=== PATIENT | male | born 1960 | race Hispanic/Latino ===

== ENCOUNTER 2017-10-08 02:53 | Emergency (ER) | payer OTHER ==
[2017-10-08 02:53] VITALS: BMI 28.8
[2017-10-08] MEDS ORDERED: Sodium Chloride 0.9% 1,000 ML IV STA (03:41)
[2017-10-08] MEDS ORDERED: Albuterol-Ipratrop 3 mg / 0.5 (3 ml) UD IH STA (03:43)
--- NOTE | 2017-10-08 03:43 | ED PDOC ---
HPI: Abdomen Time Seen by Provider: 10/08/17 03:13 Chief Complaint (Nursing): Abdominal Pain Chief Complaint (Provider): abdominal pain History Per: Patient History/Exam Limitations: no limitations Onset/Duration Of Symptoms: Days (1) Current Symptoms Are (Timing): Still Present Location Of Pain/Discomfort: RUQ Additional Complaint(s): 57 y/o male presents for evaluation of right upper abdominal pain x 1 day. Patient with history of gallstones, states this feels like his similar "gallbladder attack". Patient is scheduled to have surgery with Dr. Fox in October, requesting Toradol today. Denies fever, nausea/vomiting, chest pain, shortness of breath, palpitations, changes in bowel movements, urinary symptoms. Past Medical History Reviewed: Historical Data, Nursing Documentation, Vital Signs Vital Signs: Last Vital Signs Temp 98.6 F 10/08/17 03:00 Pulse 67 10/08/17 03:00 Resp 16 10/08/17 03:00 BP 152/93 H 10/08/17 03:00 Pulse Ox 99 10/08/17 03:44 - Medical History PMH: Asthma, COPD, Emphysema, Gall Bladder Disease Denies: Chronic Kidney Disease - Surgical History Surgical History: Appendectomy - Family History Family History: States: Unknown Family Hx - Immunization History Hx Tetanus Toxoid Vaccination: No Hx Influenza Vaccination: No Hx Pneumococcal Vaccination: No - Home Medications Home Medications: Ambulatory Orders Medication Instructions Recorded Albuterol/Ipratropium [Duoneb 3 3 ml IH Q6H PRN 07/19/16 MG/3 Ml-0.5 MG/3 Ml 3 Ml] Dulera 100 Mcg/5 Mcg Inhaler 1 dose INH BID 03/06/17 Spiriva 1 dose INH BID 03/06/17 Albuterol HFA [Ventolin HFA 90 1 puff IH PRN PRN 09/07/17 mcg/actuation (8 g)] Montelukast [Singulair] 10 mg PO HS 09/07/17 Prednisone [Deltasone] 1 tab PO DAILY 09/07/17 Ketorolac Tromethamine [Toradol] 10 mg PO Q6 PRN #20 tab 10/08/17 - Allergies Allergies/Adverse Reactions: Allergies Allergy/AdvReac Type Severity Reaction Status Date / Time No Known Allergies Allergy Verified 09/07/17 09:23 Review of Systems ROS Statement: Except As Marked, All Systems Reviewed And Found Negative Gastrointestinal: Positive for: Abdominal Pain Physical Exam - Reviewed Nursing Documentation Reviewed: Yes Vital Signs Reviewed: Yes - Physical Exam Appears: Positive for: Well, Non-toxic, Uncomfortable (anxious) Head Exam: Positive for: ATRAUMATIC, NORMAL INSPECTION, NORMOCEPHALIC Skin: Positive for: Normal Color Eye Exam: Positive for: Normal appearance ENT: Positive for: Normal ENT Inspection Cardiovascular/Chest: Positive for: Regular Rate, Rhythm Respiratory: Positive for: Normal Breath Sounds Gastrointestinal/Abdominal: Positive for: Soft, Tenderness (RUQ, neg Sheth's). Negative for: Guarding, Rebound Back: Positive for: Normal Inspection Extremity: Positive for: Normal ROM Neurologic/Psych: Positive for: Alert, Oriented - Laboratory Results Result Diagrams: 10/08/17 04:07 10/08/17 04:07 - ECG O2 Sat by Pulse Oximetry: 99 - Progress ED Course And Treament: labs, IV toradol, IV fluids, duoneb On re-eval, patient sleeping; upon awaking states pain improved. Tolerating PO WBC normal. Afebrile. LFTs/lipase normal Patient stable for discharge Advised follow up with Surgeon as scheduled Rx Toradol provided Return precautions given Disposition - Clinical Impression Clinical Impression: Biliary colic - Patient ED Disposition Is Patient to be Admitted: No Counseled Patient/Family Regarding: Studies Performed, Diagnosis, Need For Followup, Rx Given - Disposition Disposition: Routine/Home Disposition Time: 05:10 Condition: IMPROVED Prescriptions: Ketorolac Tromethamine [Toradol] 10 mg PO Q6 PRN #20 tab PRN Reason: Pain, Moderate (4-7) Instructions: Gallstones
[2017-10-08] MEDS ORDERED: Albuterol-Ipratrop 3 mg / 0.5 (3 ml) UD ONE (04:08)
[2017-10-08 04:10] LABS: BASO % 0.3 % (0.0-2.0); EOS % 0.2 % (0.0-4.0); HEMOGLOBIN 13.5 g/dL (12.0-18.0); LYMPH # 0.7 K/uL (1.0-4.3); LYMPH % 6.7 % (20.0-40.0); MEAN CELL VOLUME 87.3 fl (80.0-94.0); MEAN CORPUSCULAR HEMOGLOBIN 29.6 pg (27.0-31.0); MEAN CORPUSCULAR HGB CONC 33.9 g/dL (33.0-37.0); MEAN PLATELET VOLUME 9.3 fl (7.2-11.7); MONO # 0.3 K/uL (0.0-0.8); MONO % 3.4 % (0.0-10.0); NEUT # 8.8 K/uL (1.8-7.0); NEUT % 89.4 % (50.0-75.0); PLATELET COUNT 201 K/uL (130-400); RBC 4.57 Mil/uL (4.40-5.90); RED CELL DISTRIBUTION WIDTH 14.6 % (11.5-14.5); WHITE BLOOD COUNT 9.8 K/uL (4.8-10.8)
[2017-10-08 04:21] LABS: ALB/GLOB RATIO 1.5 (1.0-2.1); ALBUMIN 3.9 g/dL (3.5-5.0); ALT/SGPT 25 U/L (21-72); AST/SGOT 22 U/L (17-59); BLOOD UREA NITROGEN 17 mg/dl (9-20); CALCIUM 8.3 mg/dL (8.4-10.2); GFR AFRICAN-AMERICAN > 60; GFR NON-AFRICAN AMERICAN > 60; LIPASE 58 U/L (23-300)
[2017-10-08 06:16] VITALS: BP 151/63; PULSE 75; RESP 18; TEMP 98; O2SAT 95
[2017-10-08 07:30] LABS: ACANTHOCYTES SLIGHT; ANISOCYTOSIS SLIGHT; BANDS 2 % (0-2); BASOPHIL 1 % (0-2); HYPOCHROMIC SLIGHT; LYMPHOCYTE 7 % (20-50); MONOCYTE 1 % (0-10); NEUTROPHIL 88 % (42-75); PLATELET ESTIMATE NORMAL (NORMAL); REACTIVE LYMPHOCYTES 1 % (0-0); TOTAL CELLS COUNTED 100
[2017-10-08 07:33] LABS: LARGE PLATELETS PRESENT
== END 2017-10-08 06:44 | disposition home or self-care (01) ==
LOC: H.ER 02:53
DX: K80.20 Calculus of gallbladder without cholecystitis without obstruction (principal); J44.9 Chronic obstructive pulmonary disease, unspecified
CPT/HCPCS: 80053; 83690; 85025; 94640; 96374; 99283; J1885; J7030

== ENCOUNTER 2017-11-17 12:18 | Emergency (ER) | payer MEDICAID, OTHER ==
[2017-11-17 12:18] VITALS: BMI 28.8
[2017-11-17 12:30] VITALS: TEMP 97
--- NOTE | 2017-11-17 13:10 | ED PDOC ---
HPI: Chest Pain Time Seen by Provider: 11/17/17 12:32 Chief Complaint (Nursing): Chest Pain History Per: Patient (Jake is a 57 yo man with h/o COPD who presents for evaluation of left lower chest pain that started abrupted after tripping over a tree stump at 2 am and landing onto the concrete onto his left side. His friend helped him up and took him to his house to rest. This morning he noticed that the pain is worse. He also noted that he has had more phlegm with his chronic cough.) Past Medical History Reviewed: Historical Data, Nursing Documentation, Vital Signs Vital Signs: Last Vital Signs Temp 97.0 F L 11/17/17 12:27 Pulse 86 11/17/17 12:27 Resp 18 11/17/17 12:27 BP 142/86 11/17/17 12:27 Pulse Ox 99 11/17/17 13:14 - Medical History PMH: Asthma, COPD, Emphysema, Gall Bladder Disease Denies: Chronic Kidney Disease - Surgical History Surgical History: Appendectomy - Family History Family History: States: Unknown Family Hx - Social History Current smoker - smoking cessation education provided: Yes Alcohol: Social - Immunization History Hx Tetanus Toxoid Vaccination: No Hx Influenza Vaccination: No Hx Pneumococcal Vaccination: No - Home Medications Home Medications: Ambulatory Orders Medication Instructions Recorded Albuterol/Ipratropium [Duoneb 3 3 ml IH Q6H PRN 07/19/16 MG/3 Ml-0.5 MG/3 Ml 3 Ml] Dulera 100 Mcg/5 Mcg Inhaler 1 dose INH BID 03/06/17 Spiriva 1 dose INH BID 03/06/17 Albuterol HFA [Ventolin HFA 90 1 puff IH PRN PRN 09/07/17 mcg/actuation (8 g)] Montelukast [Singulair] 10 mg PO HS 09/07/17 Prednisone [Deltasone] 1 tab PO DAILY 09/07/17 Ketorolac Tromethamine [Toradol] 10 mg PO Q6 PRN #20 tab 10/08/17 - Allergies Allergies/Adverse Reactions: Allergies Allergy/AdvReac Type Severity Reaction Status Date / Time No Known Allergies Allergy Verified 09/07/17 09:23 Review of Systems ROS Statement: Except As Marked, All Systems Reviewed And Found Negative Constitutional: Negative for: Fever, Chills Cardiovascular: Positive for: Chest Pain (lateral and lower on the left side) Respiratory: Positive for: Cough. Negative for: Shortness of Breath, Hemoptysis , SOB with Exertion Gastrointestinal: Negative for: Nausea, Vomiting Physical Exam - Reviewed Nursing Documentation Reviewed: Yes Vital Signs Reviewed: Yes - Physical Exam Appears: Positive for: Well, Non-toxic, No Acute Distress Head Exam: Positive for: ATRAUMATIC, NORMAL INSPECTION, NORMOCEPHALIC Skin: Positive for: Normal Color, Warm, DRY Eye Exam: Positive for: Normal appearance, EOMI ENT: Positive for: Normal ENT Inspection Neck: Positive for: Normal, Supple Cardiovascular/Chest: Positive for: Regular Rate, Rhythm, Other (tenderness on palpation of the left mid to lower chest on the right) Respiratory: Positive for: CNT, Normal Breath Sounds Gastrointestinal/Abdominal: Positive for: Normal Exam, Soft Back: Positive for: Normal Inspection Extremity: Positive for: Normal ROM Neurologic/Psych: Positive for: Alert, Oriented - ECG O2 Sat by Pulse Oximetry: 99 - Radiology X-Ray: Viewed By Me, Read By Radiologist X-Ray Interpretation: No Acute Disease Disposition - Clinical Impression Clinical Impression: Chest wall pain - Patient ED Disposition Is Patient to be Admitted: No Doctor Will See Patient In The: Office Counseled Patient/Family Regarding: Diagnosis, Need For Followup - Disposition Disposition: Routine/Home Disposition Time: 13:45 Condition: STABLE Instructions: Bruised Rib (DC) Forms: [facility] (Upper Sorbian) - POA Present On Arrival: Falls Or Trauma
--- NOTE | 2017-11-17 13:26 | RAD ---
Date of service: 11/17/2017 PROCEDURE: Radiographs of the Chest and Left Ribs. HISTORY: trauma with bruising COMPARISON: None available. TECHNIQUE: Frontal radiograph of the chest and multiple oblique radiographs of the left ribs were obtained. FINDINGS: LEFT RIBS: No fracture or focal lesion visualized. LUNGS: Clear. PLEURA: No pneumothorax or pleural fluid. CARDIOVASCULAR: Normal sized heart. No pulmonary vascular congestion. OTHER FINDINGS: None. IMPRESSION: Unremarkable radiographs of the chest and left ribs. No left rib fracture.
--- NOTE | 2017-11-17 13:27 | RAD ---
Date of service: 11/17/2017 HISTORY: cough COMPARISON: No prior. TECHNIQUE: Chest PA and lateral FINDINGS: LUNGS: No active pulmonary disease. PLEURA: No significant pleural effusion identified. No pneumothorax apparent. CARDIOVASCULAR: Normal. OSSEOUS STRUCTURES: Thoracic spondylosis Accessory ossifications center (versus tiny loose body bordering the superior glenoid rim. VISUALIZED UPPER ABDOMEN: Normal. OTHER FINDINGS: None. IMPRESSION: No acute cardiopulmonary pathology. Specifically no pulmonary infiltrate. Other findings as above.
[2017-11-17 15:27] VITALS: BP 138/81; PULSE 81; RESP 15; O2SAT 97
== END 2017-11-17 15:27 | disposition home or self-care (01) ==
LOC: H.ER 12:18
DX: R07.89 Other chest pain (principal)
CPT/HCPCS: 71046; 71101; 96372; 99283; J1885

== ENCOUNTER 2018-03-07 18:54 | Inpatient (IN) | payer OTHER ==
[2018-03-07 18:54] VITALS: BMI 28.8
[2018-03-07] MEDS ORDERED: Sodium Chloride 0.9% 1,000 ML IV STA ×3 (19:29→23:35)
[2018-03-07] MEDS ORDERED: Albuterol-Ipratrop 3 mg / 0.5 (3 ml) UD INH STA (19:34)
[2018-03-07 19:51] LABS: BASO # 0.1 K/uL (0.0-0.2); BASO % 0.7 % (0.0-2.0); EOS # 0.2 K/uL (0.0-0.7); EOS % 1.8 % (0.0-4.0); HEMOGLOBIN 14.3 g/dL (12.0-18.0); LYMPH # 2.5 K/uL (1.0-4.3); LYMPH % 21.2 % (20.0-40.0); MEAN CELL VOLUME 88.6 fl (80.0-94.0); MEAN CORPUSCULAR HEMOGLOBIN 28.8 pg (27.0-31.0); MEAN CORPUSCULAR HGB CONC 32.5 g/dL (33.0-37.0); MEAN PLATELET VOLUME 9.3 fl (7.2-11.7); MONO # 0.9 K/uL (0.0-0.8); MONO % 7.8 % (0.0-10.0); NEUT % 68.5 % (50.0-75.0); NRBC % 0.1 % (0.0-0.0); RBC 4.99 Mil/uL (4.40-5.90); RED CELL DISTRIBUTION WIDTH 14.7 % (11.5-14.5); WHITE BLOOD COUNT 11.6 K/uL (4.8-10.8)
[2018-03-07 20:06] LABS: ALB/GLOB RATIO 1.4 (1.0-2.1); ALBUMIN 4.2 g/dL (3.5-5.0); ALT/SGPT 78 U/L (21-72); AST/SGOT 40 U/L (17-59); BLOOD UREA NITROGEN 18 mg/dl (9-20); CALCIUM 8.8 mg/dL (8.4-10.2); GFR NON-AFRICAN AMERICAN > 60; LIPASE 48 U/L (23-300)
--- NOTE | 2018-03-07 20:16 | ED PDOC ---
HPI: Abdomen Time Seen by Provider: 03/07/18 19:13 Chief Complaint (Nursing): Abdominal Pain Chief Complaint (Provider): Abdominal pain History Per: Patient History/Exam Limitations: no limitations Onset/Duration Of Symptoms: Hrs Current Symptoms Are (Timing): Still Present Location Of Pain/Discomfort: RUQ Quality Of Discomfort: "Pain" Additional History Per: Patient Additional Complaint(s): 58yo male, with history of gallstones, comes to ER with sudden onset RUQ abdominal pain, onset approximately 2 hours prior to arrival. Patient states he has a known history of cholelithiasis and had a scheduled surgery with Dr. Fox, but due to personal reasons had to cancel the surgery; he states he had scheduled the surgery for an outpatient procedure but today he had sudden onset pain, which is the worst he has experienced. HE also reports associated vomiting and states he has relief only when he is "hunched over." Patient states the vomiting was non-bilious, non-bloody and the abdominal pain is worse with deep inspiration. Patient denies any fever, chills and offers no other complain ts. PMD: Dr. Quinonez Past Medical History Reviewed: Historical Data, Nursing Documentation, Vital Signs Vital Signs: Last Vital Signs Temp 98.4 F 03/07/18 18:58 Pulse 88 03/07/18 18:58 Resp 16 03/07/18 18:58 BP 160/105 H 03/07/18 18:58 Pulse Ox 100 03/07/18 18:58 - Medical History PMH: Asthma, COPD, Emphysema, Gall Bladder Disease Denies: Chronic Kidney Disease - Surgical History Surgical History: Appendectomy - Family History Family History: States: No Known Family Hx - Immunization History Hx Tetanus Toxoid Vaccination: No Hx Influenza Vaccination: No Hx Pneumococcal Vaccination: No - Home Medications Home Medications: Ambulatory Orders Medication Instructions Recorded Albuterol/Ipratropium [Duoneb 3 3 ml IH Q6H PRN 07/19/16 MG/3 Ml-0.5 MG/3 Ml 3 Ml] Dulera 100 Mcg/5 Mcg Inhaler 1 dose INH BID 03/06/17 Spiriva 1 dose INH BID 03/06/17 Albuterol HFA [Ventolin HFA 90 1 puff IH PRN PRN 09/07/17 mcg/actuation (8 g)] Montelukast [Singulair] 10 mg PO HS 09/07/17 Prednisone [Deltasone] 1 tab PO DAILY 09/07/17 Ketorolac Tromethamine [Toradol] 10 mg PO Q6 PRN #20 tab 10/08/17 - Allergies Allergies/Adverse Reactions: Allergies Allergy/AdvReac Type Severity Reaction Status Date / Time No Known Allergies Allergy Verified 09/07/17 09:23 Review of Systems ROS Statement: Except As Marked, All Systems Reviewed And Found Negative Constitutional: Negative for: Fever, Chills Cardiovascular: Negative for: Chest Pain Respiratory: Negative for: Shortness of Breath Gastrointestinal: Positive for: Vomiting, Abdominal Pain Physical Exam - Reviewed Nursing Documentation Reviewed: Yes Vital Signs Reviewed: Yes - Physical Exam Appears: Positive for: Non-toxic, Uncomfortable Head Exam: Positive for: ATRAUMATIC, NORMAL INSPECTION, NORMOCEPHALIC Skin: Positive for: Normal Color Eye Exam: Positive for: Normal appearance Cardiovascular/Chest: Positive for: Regular Rate, Rhythm Respiratory: Positive for: Normal Breath Sounds Gastrointestinal/Abdominal: Positive for: Soft, Tenderness (right upper quadrant tenderness; (+) Lillian sign). Negative for: Mass, Distended, Guarding, Rebound Back: Positive for: Normal Inspection Extremity: Positive for: Normal ROM. Negative for: Pedal Edema Neurologic/Psych: Positive for: Alert, Oriented. Negative for: Motor/Sensory Deficits Comments: Exam somewhat limited due to patient being unable to lay on stretcher - Laboratory Results Result Diagrams: 03/07/18 19:30 03/07/18 19:30 - ECG O2 Sat by Pulse Oximetry: 100 (RA) Pulse Ox Interpretation: Normal Medical Decision Making Medical Decision Making: Assessment: 58yo male with history of gallstones, comes to ER with acute onset right upper quadrant pain cholecystits vs. other gallbladder pathology Plan: -- Labs -- US Abdomen -- Toradol 30mg IV -- IV Fluids 2210 Labs reviewed and patient noted to have elevated ALT and slightly elevated WBC. Patient's pain initially controlled with Toradol but has now returned; patient given Morphine 2mg. Patient given additional IV fluids. Currently awaiting US results. 2241 US Abdomen Findings: The pancreas is limited in visualization secondary to overlying bowel gas, but appears grossly unremarkable. The liver demonstrates uniform echotexture and echogenicity, with no mass lesions. The gallbladder wall is thickened measuring up to 5.5 mm. Multiple echogenic shadowing foci are noted within the gallbladder. The common bile duct is dilated, measuring up to 7 mm in diameter. The right kidney measures 10.3 cm in length. There is no evidence of hydronephrosis or nephrolithiasis. There is no ascites. Impression: 1. Cholelithiasis with gallbladder wall thickening in mild biliary ductal dilatation. Positive sonographic Sheth's sign was elicited as well. This conglomeration of findings is suspicious for acute cholecystitis. [id number] Patient consulted with surgery service. Surgery requesting admission for ch olelithiasis with possibility of acute cholecystitis. Patient also has been treated for COPD exacerbation with Duonebs. IV fluids given. Will start Ceftriaxone per surgery's request. Spoke with Dr. Dumont to inform of admission and he agrees with plan. Patient's pain has improved with Toradol and Morphine. Scribe Attestation: Documented by Noemi Carroll, acting as a scribe for Eunice Pinto MD. Provider Scribe Attestation: All medical record entries made by the Scribe were at my direction and personally dictated by me. I have reviewed the chart and agree that the record accurately reflects my personal performance of the history, physical exam, medical decision making, and the department course for this patient. I have also personally directed, reviewed, and agree with the discharge instructions and disposition. Disposition - Clinical Impression Clinical Impression: Cholecystitis - Disposition Disposition Time: 23:40 Condition: GUARDED
[2018-03-07 20:41] LABS: VENOUS BLOOD GAS BASE EXCESS 2.5 mmol/L (0.0-2.0); VENOUS BLOOD GAS PCO2 45 mmHg (40-60); VENOUS BLOOD GAS PO2 53 mm/Hg (30-55)
[2018-03-07 20:48] LABS: INR 0.9; PROTHROMBIN TIME 10.7 Seconds (9.8-13.1)
[2018-03-07 20:51] LABS: PARTIAL THROMBOPLASTIN TIME 27.4 Seconds (25.6-37.1)
[2018-03-07] MEDS ORDERED: Morphine 4 MG/ML VIAL ONE (22:05)
--- NOTE | 2018-03-07 23:38 | CP.PCM.CON ---
History of Present Illness - History of Present Illness History of Present Illness: general Surgery Consult for Dr. Childress Consulted for Cholecystitis Patient is a 58 yr old male with PMH COPD, cholithiasis who presents with new onset sharp RUQ abdominal pain beginning at 3 pm today associated with n/v x1. Patient states the pain began after he ate a tuna sandwich. He has been scheduled in the past to have his gallbladder removed but had to cancel due to various circumstances. He otherwise denies f/c, DAVE, SOB, CP and extremity pain or weakness. PMH: COPD, cholelithiasis PSH: appendectomy All: nkda Social: smoker 1/2 ppd, denies ETOH, cocaine abuse last use 4 days ago Review of Systems - Review of Systems All systems: reviewed and no additional remarkable complaints except (as per HPI) Past Patient History - Infectious Disease Hx of Infectious Diseases: None - Past Medical History & Family History Past Medical History?: Yes - Past Social History Smoking Status: Light Smoker < 10 Cigarettes Daily - CARDIAC Hx Cardiac Disorders: No - PULMONARY Hx Asthma: Yes Hx Chronic Obstructive Pulmonary Disease (COPD): Yes Hx Emphysema: Yes - NEUROLOGICAL Hx Neurological Disorder: No - HEENT Hx HEENT Problems: No - RENAL Hx Chronic Kidney Disease: No - ENDOCRINE/METABOLIC Hx Endocrine Disorders: No - HEMATOLOGICAL/ONCOLOGICAL Hx Blood Disorders: No - INTEGUMENTARY Hx Dermatological Problems: No - MUSCULOSKELETAL/RHEUMATOLOGICAL Hx Musculoskeletal Disorders: No Hx Degenerative Joint Disease: No Hx Falls: No Hx Gout: No Hx Unsteady Gait: No - GASTROINTESTINAL Hx Gall Bladder Disease: Yes - GENITOURINARY/GYNECOLOGICAL Hx Genitourinary Disorders: No - PSYCHIATRIC Hx Psychophysiologic Disorder: No Hx Substance Use: No - SURGICAL HISTORY Hx Appendectomy: Yes - ANESTHESIA Hx Anesthesia: Yes Hx Anesthesia Reactions: No Hx Malignant Hyperthermia: No Meds Allergies/Adverse Reactions: Allergies Allergy/AdvReac Type Severity Reaction Status Date / Time No Known Allergies Allergy Verified 09/07/17 09:23 Physical Exam - Constitutional Appears: Well, Non-toxic, No Acute Distress - Head Exam Head Exam: ATRAUMATIC, NORMOCEPHALIC - Eye Exam Eye Exam: EOMI - ENT Exam ENT Exam: Mucous Membranes Moist - Respiratory Exam Respiratory Exam: NORMAL BREATHING PATTERN - Cardiovascular Exam Cardiovascular Exam: REGULAR RHYTHM - GI/Abdominal Exam GI & Abdominal Exam: Firm (RUQ), Guarding (RUQ), Tenderness (RUQ). absent: Distended, Rebound, Soft (firm RUQ rest of abdomen is soft nontender) Additional comments: positive pritchett sign - Extremities Exam Extremities exam: Positive for: pedal pulses present. Negative for: calf tenderness, pedal edema - Neurological Exam Neurological exam: Alert, Oriented x3 - Psychiatric Exam Psychiatric exam: Normal Affect, Normal Mood - Skin Skin Exam: Dry, Intact, Normal Color, Warm Results - Vital Signs Recent Vital Signs: Last Vital Signs Temp 98.4 F 03/07/18 18:58 Pulse 88 03/07/18 18:58 Resp 16 03/07/18 18:58 BP 160/105 H 03/07/18 18:58 Pulse Ox 100 03/07/18 22:42 - Labs Result Diagrams: 03/07/18 19:30 03/07/18 19:30 Labs: Laboratory Results - last 24 hr 03/07/18 03/07/18 03/07/18 19:30 19:30 19:30 WBC 11.6 H RBC 4.99 Hgb 14.3 Hct 44.2 MCV 88.6 MCH 28.8 MCHC 32.5 L RDW 14.7 H Plt Count 203 MPV 9.3 Neut % (Auto) 68.5 Lymph % (Auto) 21.2 Schley % (Auto) 7.8 Eos % (Auto) 1.8 Baso % (Auto) 0.7 Neut # (Auto) 8.0 H Lymph # (Auto) 2.5 Schley # (Auto) 0.9 H Eos # (Auto) 0.2 Baso # (Auto) 0.1 PT INR APTT pO2 VBG pH VBG pCO2 VBG HCO3 VBG Total CO2 VBG O2 Sat (Calc) VBG Base Excess VBG Potassium Sodium 142 Chloride 104 Glucose Lactate FiO2 Potassium 3.8 Carbon Dioxide 28 Anion Gap 14 BUN 18 Creatinine 0.9 Est GFR ( Amer) > 60 Est GFR (Non-Af Amer) > 60 Random Glucose 101 Calcium 8.8 Total Bilirubin 0.4 AST 40 ALT 78 H D Alkaline Phosphatase 48 Total Protein 7.1 Albumin 4.2 Globulin 2.9 Albumin/Globulin Ratio 1.4 Lipase 48 Venous Blood Potassium Blood Type A POSITIVE Antibody Screen Negative BBK History Checked No verified bt 03/07/18 03/07/18 19:30 20:35 WBC RBC Hgb Hct MCV MCH MCHC RDW Plt Count MPV Neut % (Auto) Lymph % (Auto) Schley % (Auto) Eos % (Auto) Baso % (Auto) Neut # (Auto) Lymph # (Auto) Schley # (Auto) Eos # (Auto) Baso # (Auto) PT 10.7 INR 0.9 APTT 27.4 pO2 53 VBG pH 7.40 VBG pCO2 45 VBG HCO3 26.6 VBG Total CO2 29.3 H VBG O2 Sat (Calc) 92.6 H VBG Base Excess 2.5 H VBG Potassium 3.4 L Sodium 139.0 Chloride 105.0 Glucose 102 Lactate 1.0 FiO2 21.0 Potassium Carbon Dioxide Anion Gap BUN Creatinine Est GFR ( Amer) Est GFR (Non-Af Amer) Random Glucose Calcium Total Bilirubin AST ALT Alkaline Phosphatase Total Protein Albumin Globulin Albumin/Globulin Ratio Lipase Venous Blood Potassium 3.4 L Blood Type Antibody Screen BBK History Checked Assessment & Plan - Assessment and Plan (Free Text) Assessment: 58 yr old male with Cholecystitis Plan: IVF NPO IV abx pain control marlene d/crystal Kuo, PGY 1 - Date & Time Date: 03/07/18 Time: 22:50
[2018-03-07] MEDS ORDERED: Oxycodone/Acetaminophen 5/325 mg Tab PO PRN (23:43)
[2018-03-07] MEDS ORDERED: Morphine 4 MG/ML VIAL IVP PRN (23:43)
[2018-03-07] MEDS ORDERED: Piperacillin/Tazobact 3.375 GM in Sodium Chloride 0.9% 100 ML IVPB SCH (23:45)
[2018-03-07] MEDS ORDERED: Dextrose 5%/Lactated Ringer's 1,000 ML IV SCH (23:45)
[2018-03-08] MEDS ORDERED: cefTRIAXone (Rocephin) 1 gm Inj ONE (00:42)
[2018-03-08] MEDS ORDERED: Piperacillin/Tazobact 3.375 gm Inj IVPB ONE ×2 (00:43→08:01)
[2018-03-08] MEDS ORDERED: Oxycodone/Acetaminophen 5/325 mg Tab ONE ×2 (00:46→12:54)
[2018-03-08] MEDS ORDERED: Albuterol-Ipratrop 3 mg / 0.5 (3 ml) UD INH STA (00:57)
[2018-03-08] MEDS: Dextrose 5%/0.9% NS 1,000 ML IV SCH ×2 (02:17→11:00)
[2018-03-08 06:23] LABS: BASO # 0.1 K/uL (0.0-0.2); BASO % 0.5 % (0.0-2.0); EOS # 0.2 K/uL (0.0-0.7); EOS % 2.1 % (0.0-4.0); HEMOGLOBIN 12.9 g/dL (12.0-18.0); LYMPH # 1.5 K/uL (1.0-4.3); LYMPH % 13.4 % (20.0-40.0); MEAN CELL VOLUME 88.3 fl (80.0-94.0); MEAN CORPUSCULAR HEMOGLOBIN 29.4 pg (27.0-31.0); MEAN CORPUSCULAR HGB CONC 33.3 g/dL (33.0-37.0); MONO # 0.8 K/uL (0.0-0.8); MONO % 7.3 % (0.0-10.0); NEUT # 8.6 K/uL (1.8-7.0); NEUT % 76.7 % (50.0-75.0); RBC 4.4 Mil/uL (4.40-5.90); RED CELL DISTRIBUTION WIDTH 14.4 % (11.5-14.5); WHITE BLOOD COUNT 11.1 K/uL (4.8-10.8)
[2018-03-08 06:53] LABS: ALB/GLOB RATIO 1.3 (1.0-2.1); ALBUMIN 3.4 g/dL (3.5-5.0); ALT/SGPT 63 U/L (21-72); AST/SGOT 31 U/L (17-59); BLOOD UREA NITROGEN 12 mg/dl (9-20); CALCIUM 8.3 mg/dL (8.4-10.2); GFR NON-AFRICAN AMERICAN > 60
[2018-03-08] MEDS: Piperacillin/Tazobact 3.375 GM in Sodium Chloride 0.9% 100 ML IVPB SCH (08:01)
--- NOTE | 2018-03-08 10:52 | CP.PCM.PN ---
Subjective - Date & Time of Evaluation Date of Evaluation: 03/08/18 Time of Evaluation: 10:50 - Subjective Subjective: Surgery Pt seen and examined. Reports RUQ pain. Denies fever, vomiting. Voiding. Objective - Vital Signs/Intake and Output Vital Signs (last 24 hours): Temp Pulse Resp BP Pulse Ox 97.9 F 81 17 174/117 H 97 03/08/18 08:00 03/08/18 08:00 03/08/18 08:00 03/08/18 08:00 03/08/18 08:00 - Medications Medications: Current Medications Acetaminophen (Tylenol 325mg Tab) 650 mg PO Q4 PRN PRN Reason: Fever >100.4 F Albuterol/Ipratropium (Duoneb 3 Mg/0.5 Mg (3 Ml) Ud) 3 ml INH RQ4 PRN PRN Reason: Shortness of Breath Piperacillin Sod/Tazobactam (Sod 3.375 gm/ Sodium Chloride) 100 mls @ 100 mls/hr IVPB Q6 MOY; Protocol Last Admin: 03/08/18 08:01 Dose: 100 mls/hr Dextrose/Sodium Chloride (Dextrose 5%/0.9% Ns 1000 Ml) 1,000 mls @ 125 mls/hr IV .Q8H MOY Stop: 03/09/18 01:48 Last Admin: 03/08/18 02:17 Dose: Not Given Ketorolac Tromethamine (Toradol) 30 mg IVP Q6 PRN PRN Reason: Pain, moderate (4-7) Last Admin: 03/08/18 07:51 Dose: 30 mg Ondansetron HCl (Zofran Inj) 4 mg IVP Q4 PRN PRN Reason: Nausea/Vomiting Oxycodone/Acetaminophen (Percocet 5/325 Mg Tab) 1 tab PO Q4 PRN PRN Reason: Pain, severe (8-10) Stop: 03/10/18 23:44 Pantoprazole Sodium (Protonix Inj) 40 mg IVP DAILY MOY - Labs Labs: 03/08/18 06:00 03/08/18 06:00 PT 10.7 Seconds (9.8-13.1) 03/07/18 20:35 INR 0.9 03/07/18 20:35 APTT 27.4 Seconds (25.6-37.1) 03/07/18 20:35 - Constitutional Appears: No Acute Distress - Head Exam Head Exam: ATRAUMATIC, NORMAL INSPECTION, NORMOCEPHALIC - Eye Exam Eye Exam: EOMI, Normal appearance, PERRL Pupil Exam: NORMAL ACCOMODATION, PERRL - ENT Exam ENT Exam: Mucous Membranes Moist - Neck Exam Neck Exam: Full ROM, Normal Inspection. absent: Lymphadenopathy - Respiratory Exam Respiratory Exam: NORMAL BREATHING PATTERN - Cardiovascular Exam Cardiovascular Exam: REGULAR RHYTHM - GI/Abdominal Exam GI & Abdominal Exam: Distended, Soft, Tenderness. absent: Firm, Guarding, Rigid, Mass, Rebound Additional comments: RUQ TTP - Exam Exam: NORMAL INSPECTION - Extremities Exam Extremities Exam: Full ROM - Back Exam Back Exam: NORMAL INSPECTION - Neurological Exam Neurological Exam: Alert, Awake, CN II-XII Intact, Normal Gait, Oriented x3 - Psychiatric Exam Psychiatric exam: Normal Affect, Normal Mood - Skin Skin Exam: Dry, Intact, Normal Color, Warm Assessment and Plan - Assessment and Plan (Free Text) Assessment: Cholecystitis -NPO -IVF -ABX -f/u U tox Will KERI Childress
[2018-03-08] MEDS ORDERED: Albuterol-Ipratrop 3 mg / 0.5 (3 ml) UD ONE (10:55)
--- NOTE | 2018-03-08 10:59 | US ---
Date of service: 03/07/2018 HISTORY: RUQ abd pain COMPARISON: None. TECHNIQUE: Sonographic evaluation of the right upper quadrant of the abdomen. FINDINGS: LIVER: Measures 19.4 cm in length. Patent portal vein. Portal venous flow: Hepatopetal. Unremarkable echogenicity of the liver parenchyma. No mass. No intrahepatic bile duct dilatation. GALLBLADDER: Multiple gallstones identified the largest 2.3 x 2.4 cm. Gallbladder wall thickening noted. Positive sonographic Sheth sign elicited. COMMON BILE DUCT: Measures 6.8 mm. No stones. No dilatation. PANCREAS: Obscured by overlying bowel gas. RIGHT KIDNEY: Measures 5.9 x 10.3 cm in length. Normal echogenicity. No calculus, mass, or hydronephrosis. AORTA: No aneurysmal dilatation. IVC: Unremarkable. OTHER FINDINGS: None . IMPRESSION: Cholelithiasis, gallbladder wall thickening and positive sonographic Sheth's sign. Findings are consistent with acute cholecystitis. Concordant findings (preliminary report) provided by [facility].
[2018-03-08] MEDS: Albuterol-Ipratrop 3 mg / 0.5 (3 ml) UD INH PRN ×2 (11:01→20:48)
[2018-03-08 11:36] LABS: OPIATES, UR NEGATIVE (NEGATIVE)
[2018-03-08 11:51] LABS: BARBITURATES, UR NEGATIVE (NEGATIVE); BENZODIAZEPINES, UR NEGATIVE (NEGATIVE); PHENCYCLIDINE, UR NEGATIVE (NEGATIVE)
--- NOTE | 2018-03-08 12:44 | RAD ---
Date of service: 03/08/2018 PROCEDURE: CHEST RADIOGRAPH, 1 VIEW HISTORY: COPD COMPARISON: 11/17/2017 FINDINGS: LUNGS: Clear. PLEURA: No pneumothorax or pleural fluid seen. CARDIOVASCULAR: No aortic atherosclerotic calcification present. Normal. OSSEOUS STRUCTURES: No significant abnormalities. VISUALIZED UPPER ABDOMEN: Normal. OTHER FINDINGS: None. IMPRESSION: No active disease.No significant interval change compared to the prior examination(s).
[2018-03-08] MEDS: Oxycodone/Acetaminophen 5/325 mg Tab PO PRN ×2 (12:54→17:38)
--- NOTE | 2018-03-08 15:14 | CARD ---
APPROVED REPORT Date of service: 03/07/2018 EKG Measurement Heart [id number] <Conclusion> Sinus rhythm with occasional premature ventricular complexes Otherwise normal ECG
[2018-03-08] MEDS ORDERED: methylPREDNISolone 40 MG in Sodium Chloride 0.9% 50 ML IV SCH (18:30)
[2018-03-08] MEDS ORDERED: Albuterol-Ipratrop 3 mg / 0.5 (3 ml) UD INH PRN (18:31)
--- NOTE | 2018-03-08 19:22 | CARD ---
APPROVED REPORT Date of service: 03/08/2018 EXAM: Two-dimensional and M-mode echocardiogram with Doppler and color Doppler. Other Information Quality : AverageRhythm : NSR INDICATION Pre-Op 2D DIMENSIONS IVSd0.82 (0.7-1.1cm)LVDd4.95 (3.9-5.9cm) LVOT Diameter2.41 (1.8-2.4cm)PWd1.18 (0.7-1.1cm) IVSs1.06 (0.8-1.2cm)LVDs4.00 (2.5-4.0cm) FS (%) 19.2 %PWs1.00 (0.8-1.2cm) M-Mode DIMENSIONS Left Atrium (MM)2.35 (2.5-4.0cm)IVSd1.12 (0.7-1.1cm) Aortic Root4.21 (2.2-3.7cm)LVDd5.41 (4.0-5.6cm) Aortic Cusp Exc.2.09 (1.5-2.0cm)PWd1.09 (0.7-1.1cm) IVSs1.47 cmFS (%) 33 % LVDs3.65 (2.0-3.8cm)PWs1.32 cm Aortic Valve AoV Peak Snpkvbyc717.4cm/sAoV VTI14.9cmAO Peak GR.5mmHg LVOT Peak Mzulboib14.3cm/Vivian Mean GR.3mmHgAVA (VMAX)1.56cm2 Mitral Valve MV E Ksvgupfm49.8cm/sMV DECEL YAGH468snGM A Ibxebkmi26.4cm/s MV EQX95gcS/A ratio0.9MVA (PHT)2.63cm2 TDI Lateral E' Peak V12.79cm/sE/Lateral E'4.3E/Medial E'0.0 LEFT VENTRICLE The left ventricle is normal size. There is normal left ventricular wall thickness. The left ventricular systolic function is normal. The estimated ejection fraction is 55-60% No regional wall motion abnormalities noted.. Transmitral Doppler flow pattern is Grade I-abnormal relaxation pattern. No left ventricle thrombus noted on this study. There is no ventricular septal defect visualized. There is no left ventricular aneurysm. There is no mass noted in the left ventricle. RIGHT VENTRICLE The right ventricle is normal size. There is normal right ventricular wall thickness. The right ventricular systolic function is normal. ATRIA The left atrium size is normal. The right atrium size is normal. The interatrial septum is intact with no evidence for an atrial septal defect. AORTIC VALVE The aortic valve is normal in structure. No aortic regurgitation is present. There is no aortic valvular stenosis. There is no aortic valvular vegetation. MITRAL VALVE The mitral valve is normal in structure. There is no evidence of mitral valve prolapse. There is no mitral valve stenosis. There is no mitral valve regurgitation noted. TRICUSPID VALVE The tricuspid valve is normal in structure. There is no significant tricuspid valve regurgitation noted. There is no tricuspid valve prolapse or vegetation. There is no tricuspid valve stenosis. PULMONIC VALVE The pulmonary valve is normal in structure. There is no pulmonic valvular regurgitation. There is no pulmonic valvular stenosis. GREAT VESSELS The aortic root is normal in size. The ascending aorta is normal in size. The pulmonary artery is normal. The IVC is normal in size and collapses >50% with inspiration. PERICARDIAL EFFUSION There is no pericardial effusion. There is no pleural effusion. <Conclusion> The estimated ejection fraction is 55-60% Transmitral Doppler flow pattern is Grade I-abnormal relaxation pattern. The left atrium size is normal. There is no significant tricuspid valve regurgitation noted.
[2018-03-08] MEDS: MethylPREDNISolone 40 mg Vial IVP SCH (20:49)
[2018-03-08] MEDS: Albuterol-Ipratrop 3 mg / 0.5 (3 ml) UD INH SCH (23:07)
[2018-03-09] MEDS: MethylPREDNISolone 40 mg Vial IVP SCH (02:48)
[2018-03-09] MEDS: Albuterol-Ipratrop 3 mg / 0.5 (3 ml) UD INH SCH ×4 (03:48→15:42)
[2018-03-09] MEDS: Piperacillin/Tazobact 3.375 GM in Sodium Chloride 0.9% 100 ML IVPB SCH ×2 (05:25→09:08)
--- NOTE | 2018-03-09 06:05 | HP ---
HISTORY OF PRESENT ILLNESS: This is a 58-year-old male with history of COPD and cocaine abuse, presented to emergency room with symptoms of upper abdominal pain. The patient is known to have cholelithiasis, and he was previously scheduled by Dr. Fox for cholecystectomy, but he rescheduled. The patient was evaluated in the emergency room, and he was found to have gallbladder stones with thickened wall edema and positive sonographic Sheth sign. The patient had a surgical consultation done by Dr. Childress, and the patient was admitted for further management. Other review of systems is negative. ALLERGIES: NO KNOWN ALLERGY. MEDICATIONS: Reviewed and ordered as per MAR. SOCIAL HISTORY: Positive cocaine abuse. Positive smoker. Denied EtOH or other substance abuse. FAMILY HISTORY: Not contributory. PAST MEDICAL HISTORY: COPD, cholelithiasis. PHYSICAL EXAMINATION: GENERAL: The patient is in bed, not in any cardiopulmonary distress at the time of this examination. VITAL SIGNS: Blood pressure 130/79, temperature 98.6, respiratory rate 18, and pulse 90. HEENT: Pupils equal, reactive to light. Normal appearing mucosa of the conjunctivae, oropharynx, and nasal membrane mucosa. NECK: Supple. No JVD. No carotid bruit. No lymph node. No thyromegaly. CHEST AND LUNGS: Bilateral symmetrical expansion. Good air exchange. No rales, no rhonchi. CARDIOVASCULAR SYSTEM: PMI not localized. S1, S2. No additional sounds. ABDOMEN: Positive bowel sounds. Positive Sheth sign. EXTREMITIES: No cyanosis, no clubbing, no edema. CENTRAL NERVOUS SYSTEM: Alert, awake, oriented x2. No neurological deficit could be appreciated. ASSESSMENT: 1. Acute cholecystitis. 2. Cocaine abuse. 3. Chronic obstructive pulmonary disease. 4. Smoker. PLAN: We will start IV antibiotics. We will start Solu-Medrol because the patient is on chronic prednisone therapy, and we will follow surgical recommendations, cardiac clearance. Erick Dumont MD
[2018-03-09 06:31] LABS: BASO % 0.1 % (0.0-2.0); HEMOGLOBIN 14.1 g/dL (12.0-18.0); LYMPH # 0.4 K/uL (1.0-4.3); LYMPH % 2.6 % (20.0-40.0); MEAN CELL VOLUME 89.3 fl (80.0-94.0); MEAN CORPUSCULAR HEMOGLOBIN 29.4 pg (27.0-31.0); MEAN CORPUSCULAR HGB CONC 32.9 g/dL (33.0-37.0); MEAN PLATELET VOLUME 9.5 fl (7.2-11.7); MONO # 0.3 K/uL (0.0-0.8); MONO % 2.3 % (0.0-10.0); NEUT # 14.4 K/uL (1.8-7.0); PLATELET COUNT 164 K/uL (130-400); RBC 4.81 Mil/uL (4.40-5.90); RED CELL DISTRIBUTION WIDTH 14.3 % (11.5-14.5); WHITE BLOOD COUNT 15.2 K/uL (4.8-10.8)
[2018-03-09 06:41] LABS: ALB/GLOB RATIO 1.2 (1.0-2.1); ALBUMIN 3.6 g/dL (3.5-5.0); ALT/SGPT 65 U/L (21-72); AST/SGOT 34 U/L (17-59); BLOOD UREA NITROGEN 11 mg/dl (9-20); CALCIUM 8.7 mg/dL (8.4-10.2); GFR NON-AFRICAN AMERICAN > 60
[2018-03-09 09:58] LABS: BANDS 1 % (0-2); LYMPHOCYTE 3 % (20-50); MONOCYTE 3 % (0-10); NEUTROPHIL 93 % (42-75); TOTAL CELLS COUNTED 100
[2018-03-09 09:59] LABS: PLATELET ESTIMATE NORMAL (NORMAL)
--- NOTE | 2018-03-09 10:16 | CP.PCM.CON ---
History of Present Illness - History of Present Illness History of Present Illness: THE PATIENT IS A 58 YEAR OLD A MALE ADMITTED WITH CHOLELITHIASIS AND CHOLECYSTITIS AND CARDIOLOGY HAS BEEN ASKED FOR CLEARANCE PRIOR TO THE CHOLECYSTECTOMY. HE HAS CHRONIC LUNG DISEASE AND STATES THAT IN ADDITION TO SMOKING THAT HE IS A GUZMAN AND HAS HAD CHRONIC EXPOSURE TO SAWDUST. HE DENIES ANY OTHER MEDICAL PROBLEMS SUCH CAD, CHEST PAIN, PUD, DM, ETC. THE PATIENT STATES THAT HE HAD RUQ PAIN ON AND OFF FOR MORE THAN A YEAR AND HE HAS BEEN PUTTING OFF SURGERY FOR VARIOUS REASONS IN THE PAST. THIS TIME THE PAIN STARTED 2 HOURS BEFORE HE CAME TO THE HOSPITAL AND WAS THE WORST PAIN THAT HE HAD. HE ALSO HAD NAUSEA AND VOMITING. AN ABDOMINAL US SHOWED CHOLELITHIASIS AND CHOLECYSTITIS. Past Patient History - Infectious Disease Hx of Infectious Diseases: None - Past Medical History & Family History Past Medical History?: Yes - Past Social History Smoking Status: Heavy Smoker > 10 Cigarettes Daily - CARDIAC Hx Cardiac Disorders: No - PULMONARY Hx Asthma: Yes Hx Chronic Obstructive Pulmonary Disease (COPD): Yes Hx Emphysema: Yes - NEUROLOGICAL Hx Neurological Disorder: No - HEENT Hx HEENT Problems: No - RENAL Hx Chronic Kidney Disease: No - ENDOCRINE/METABOLIC Hx Endocrine Disorders: No - HEMATOLOGICAL/ONCOLOGICAL Hx Blood Disorders: No - INTEGUMENTARY Hx Dermatological Problems: No - MUSCULOSKELETAL/RHEUMATOLOGICAL Hx Musculoskeletal Disorders: No Hx Degenerative Joint Disease: No Hx Falls: No Hx Gout: No Hx Unsteady Gait: No - GASTROINTESTINAL Hx Gall Bladder Disease: Yes - GENITOURINARY/GYNECOLOGICAL Hx Genitourinary Disorders: No - PSYCHIATRIC Hx Psychophysiologic Disorder: No Hx Substance Use: Yes (cocaine) - SURGICAL HISTORY Hx Appendectomy: Yes - ANESTHESIA Hx Anesthesia: Yes Hx Anesthesia Reactions: No Hx Malignant Hyperthermia: No Meds Allergies/Adverse Reactions: Allergies Allergy/AdvReac Type Severity Reaction Status Date / Time No Known Allergies Allergy Verified 09/07/17 09:23 - Medications Medications: Current Medications Acetaminophen (Tylenol 325mg Tab) 650 mg PO Q4 PRN PRN Reason: Fever >100.4 F Albuterol/Ipratropium (Duoneb 3 Mg/0.5 Mg (3 Ml) Ud) 3 ml INH RQ6 PRN PRN Reason: Shortness of Breath Albuterol/Ipratropium (Duoneb 3 Mg/0.5 Mg (3 Ml) Ud) 3 ml INH RQ4 [facility] Last Admin: 03/09/18 07:19 Dose: 3 ml Piperacillin Sod/Tazobactam (Sod 3.375 gm/ Sodium Chloride) 100 mls @ 100 mls/hr IVPB Q6 [facility]; Protocol Last Admin: 03/09/18 09:08 Dose: 100 mls/hr Ketorolac Tromethamine (Toradol) 30 mg IVP Q6 PRN PRN Reason: Pain, moderate (4-7) Last Admin: 03/09/18 06:04 Dose: 30 mg Methylprednisolone (Solu-Medrol) 40 mg IVP Q8H [facility] Last Admin: 03/09/18 02:48 Dose: 40 mg Montelukast Sodium (Singulair) 10 mg PO DAILY [facility] Last Admin: 03/09/18 09:05 Dose: 10 mg Ondansetron HCl (Zofran Inj) 4 mg IVP Q4 PRN PRN Reason: Nausea/Vomiting Last Admin: 03/08/18 21:45 Dose: 4 mg Oxycodone/Acetaminophen (Percocet 5/325 Mg Tab) 1 tab PO Q4 PRN PRN Reason: Pain, severe (8-10) Stop: 03/10/18 23:44 Last Admin: 03/08/18 17:38 Dose: 1 tab Pantoprazole Sodium (Protonix Inj) 40 mg IVP DAILY [facility] Last Admin: 03/09/18 09:05 Dose: 40 mg Physical Exam - Respiratory Exam Respiratory Exam: Clear to Auscultation Bilateral - Cardiovascular Exam Cardiovascular Exam: REGULAR RHYTHM, +S1, +S2 - GI/Abdominal Exam Additional comments: RUQ TENDERNESS - Extremities Exam Extremities exam: Positive for: normal inspection (EKG NSR, 1 PVC), tenderness - Additional Findings Additional findings: EKG NSR, 1 PVC ECHOCARDIOGRAM WITH LVEF OF 55-60% Results - Vital Signs Recent Vital Signs: Last Vital Signs Temp 97.6 F 03/09/18 07:50 Pulse 65 03/09/18 07:50 Resp 19 03/09/18 07:50 BP 121/76 03/09/18 07:50 Pulse Ox 95 03/09/18 07:50 - Labs Result Diagrams: 03/09/18 05:30 03/09/18 05:30 Labs: Laboratory Results - last 24 hr 03/08/18 03/09/1818 11:10 05:30 05:30 WBC 15.2 H RBC 4.81 Hgb 14.1 Hct 42.9 MCV 89.3 MCH 29.4 MCHC 32.9 L RDW 14.3 Plt Count 164 MPV 9.5 Neut % (Auto) 95.0 H Lymph % (Auto) 2.6 L [place] % (Auto) 2.3 Eos % (Auto) 0.0 Baso % (Auto) 0.1 Neut # (Auto) 14.4 H Lymph # (Auto) 0.4 L [place] # (Auto) 0.3 Eos # (Auto) 0.0 Baso # (Auto) 0.0 Neutrophils % (Manual) 93 H Band Neutrophils % 1 Lymphocytes % (Manual) 3 L Monocytes % (Manual) 3 Platelet Estimate Normal RBC Morphology Normal Sodium 137 Potassium 4.2 Chloride 101 Carbon Dioxide 27 Anion Gap 13 BUN 11 Creatinine 0.9 Est GFR ( Amer) > 60 Est GFR (Non-Af Amer) > 60 Random Glucose 167 H Calcium 8.7 Total Bilirubin 0.8 AST 34 ALT 65 Alkaline Phosphatase 64 Total Protein 6.8 Albumin 3.6 Globulin 3.1 Albumin/Globulin Ratio 1.2 Urine Opiates Screen Negative Urine Methadone Screen Negative Ur Barbiturates Screen Negative Ur Phencyclidine Scrn Negative Ur Amphetamines Screen Negative U Benzodiazepines Scrn Negative U Oth Cocaine Metabols Positive H U Cannabinoids Screen Negative Assessment & Plan - Assessment and Plan (Free Text) Assessment: CHOLELITHIASIS WITH CHOLECYSTITIS COPD STABLE CARDIAC STATUS Plan: CONTINUE COPD MEDICATIONS AND IV ANTIBIOTICS THE PATIENT IS CLEARED FOR SURGERY FROM THE CARDIAC VIEWPOINT
--- NOTE | 2018-03-09 11:30 | CP.PCM.PN ---
Subjective - Date & Time of Evaluation Date of Evaluation: 03/09/18 Time of Evaluation: 11:27 - Subjective Subjective: Surgery: Dr. Childress Pt seen and examined. Resting comfortably in bed. Pain resolved. Tolerating diet. No N/V. Objective - Vital Signs/Intake and Output Vital Signs (last 24 hours): Temp Pulse Resp BP Pulse Ox 97.6 F 65 19 121/76 95 03/09/18 07:50 03/09/18 07:50 03/09/18 07:50 03/09/18 07:50 03/09/18 07:50 - Medications Medications: Current Medications Acetaminophen (Tylenol 325mg Tab) 650 mg PO Q4 PRN PRN Reason: Fever >100.4 F Albuterol/Ipratropium (Duoneb 3 Mg/0.5 Mg (3 Ml) Ud) 3 ml INH RQ6 PRN PRN Reason: Shortness of Breath Albuterol/Ipratropium (Duoneb 3 Mg/0.5 Mg (3 Ml) Ud) 3 ml INH RQ4 [facility] Last Admin: 03/09/18 11:14 Dose: 3 ml Piperacillin Sod/Tazobactam (Sod 3.375 gm/ Sodium Chloride) 100 mls @ 100 mls/hr IVPB Q6 [facility]; Protocol Last Admin: 03/09/18 09:08 Dose: 100 mls/hr Ketorolac Tromethamine (Toradol) 30 mg IVP Q6 PRN PRN Reason: Pain, moderate (4-7) Last Admin: 03/09/18 06:04 Dose: 30 mg Methylprednisolone (Solu-Medrol) 40 mg IVP Q8H [facility] Last Admin: 03/09/18 02:48 Dose: 40 mg Montelukast Sodium (Singulair) 10 mg PO DAILY [facility] Last Admin: 03/09/18 09:05 Dose: 10 mg Ondansetron HCl (Zofran Inj) 4 mg IVP Q4 PRN PRN Reason: Nausea/Vomiting Last Admin: 03/08/18 21:45 Dose: 4 mg Oxycodone/Acetaminophen (Percocet 5/325 Mg Tab) 1 tab PO Q4 PRN PRN Reason: Pain, severe (8-10) Stop: 03/10/18 23:44 Last Admin: 03/08/18 17:38 Dose: 1 tab Pantoprazole Sodium (Protonix Inj) 40 mg IVP DAILY [facility] Last Admin: 03/09/18 09:05 Dose: 40 mg - Labs Labs: 03/09/18 05:30 03/09/18 05:30 PT 10.7 Seconds (9.8-13.1) 03/07/18 20:35 INR 0.9 03/07/18 20:35 APTT 27.4 Seconds (25.6-37.1) 03/07/18 20:35 - Constitutional Appears: Non-toxic, No Acute Distress - Head Exam Head Exam: ATRAUMATIC, NORMOCEPHALIC - Eye Exam Eye Exam: EOMI - ENT Exam ENT Exam: Mucous Membranes Moist - Neck Exam Neck Exam: Full ROM - Respiratory Exam Respiratory Exam: NORMAL BREATHING PATTERN. absent: Accessory Muscle Use, Respiratory Distress - GI/Abdominal Exam GI & Abdominal Exam: Soft. absent: Distended, Firm, Guarding, Rigid, Tenderness, Rebound - Extremities Exam Extremities Exam: absent: Calf Tenderness, Pedal Edema - Neurological Exam Neurological Exam: Alert, Awake, Oriented x3 - Psychiatric Exam Psychiatric exam: Normal Affect, Normal Mood - Skin Skin Exam: Dry, Normal Color, Warm Assessment and Plan - Assessment and Plan (Free Text) Assessment: 58M w. biliary colic -Leukocytosis likely 2/2 steroids for COPD -cleared from cardiac standpoint -pt clear for D/C from surgery, can follow up out pt to schedule elective yulissa -will sign off please re-consult if needed -d/w attending Zemaitis [id number]
[2018-03-09 16:36] VITALS: BP 131/85; PULSE 73; RESP 20; TEMP 98; O2SAT 97
== END 2018-03-09 17:00 | disposition left against medical advice (07) | DRG 207 ==
LOC: H.ER 18:54 → H.ERHOLD 23:40 → H.MEDSURG1 03-08 13:05
PROVIDERS: ADMIT Internal Medicine; ATTEND Internal Medicine
DX: K80.00 Calculus of gallbladder with acute cholecystitis without obstruction (principal); F14.10 Cocaine abuse, uncomplicated; J43.9 Emphysema, unspecified; F17.210 Nicotine dependence, cigarettes, uncomplicated; Z79.51 Long term (current) use of inhaled steroids; T38.0X5A Adverse effect of glucocorticoids and synthetic analogues, initial encounter; D72.829 Elevated white blood cell count, unspecified